=== PATIENT | male | born 1965 | race Caucasian/White ===

== ENCOUNTER 2017-12-19 19:43 | Emergency (ER) | payer BC, OTHER ==
[~2017-12-19] VITALS: Ht 177.8 cm; Wt 100.0 kg
[~2017-12-19 19:43] MED LIST: NO HOME MEDS
[2017-12-19 20:05] VITALS: BP 121/89
[2017-12-19] MEDS ORDERED: normal saline 1000ML IV soln IVB ONE (20:20)
[2017-12-19] MEDS ORDERED: ondansetron/PF 4mg/2ml inj IV ONE (20:20)
[2017-12-19] MEDS ORDERED: magnesium oxide 400mg tablet PO ONE (20:20)
[2017-12-19] MEDS ORDERED: thiamine 100mg tablet PO ONE (20:20)
== END 2017-12-19 21:15 | disposition left against medical advice (07) ==
LOC: ER 19:44
DX: F10.129 Alcohol abuse with intoxication, unspecified (principal); Y90.9 Presence of alcohol in blood, level not specified
CPT/HCPCS: 80053; 80320; 83735; 93005; 99284

== ENCOUNTER 2019-08-29 12:24 | Inpatient (IN) | payer BC, MEDICAID ==
[~2019-08-29] VITALS: Ht 180.3 cm; Wt 73.0 kg
[2019-08-29 13:17] LABS: BASOPHILS % (AUTO) 0.4 % (0-1); EOSINOPHILS % (AUTO) 0.1 % (0-6); HEMATOCRIT 56.1 % (42.0-52.0); LYMPHOCYTES # (AUTO) 2.1 X10'3 (1.1-4.8); LYMPHOCYTES % (AUTO) 43.1 % (21-51); MEAN CORPUSCULAR HEMOGLOBIN 31.6 PG (27.0-31.0); MEAN CORPUSCULAR HGB CONC 33.2 g/dL (33.0-36.5); MEAN CORPUSCULAR VOLUME 95.1 FL (78-98); MEAN PLATELET VOLUME 8.8 FL (7.4-10.4); MONOCYTES # (AUTO) 0.4 X10'3 (0-0.9); MONOCYTES % (AUTO) 8.9 % (2-12); NEUTROPHILS # (AUTO) 2.4 X10'3 (1.8-7.7); NEUTROPHILS % (AUTO) 47.5 % (42-75); PLATELET COUNT 275 X10'3 (140-440); RED CELL DISTRIBUTION WIDTH 13.9 % (11.5-14.5); WHITE BLOOD COUNT 4.9 X10'3 (4.5-11.0)
[2019-08-29 13:21] LABS: HEMOGLOBIN 18.6 g/dl (14.0-17.9)
[2019-08-29] MEDS ORDERED: normal saline 1000ML IV soln IV ONE (13:30)
[2019-08-29] MEDS ORDERED: thiamine 100mg/ml 2ml inj. IV ONE (13:30)
[2019-08-29] MEDS ORDERED: folic acid 1mg/0.2ml inj IV ONE (13:30)
[2019-08-29 13:31] LABS: ALANINE AMINOTRANSFERASE 57 U/L (12-78); ALBUMIN 4.2 G/DL (3.4-5.0); ALBUMIN/GLOBULIN RATIO 0.9 (1.1-1.5); ALKALINE PHOSPHATASE 118 IU/L (46-116); ANION GAP 16 (8-16); ASPARTATE AMINO TRANSFERASE 54 U/L (10-37); BILIRUBIN,TOTAL 0.5 MG/DL (0.1-1.0); BLOOD UREA NITROGEN 2 MG/DL (7-18); BUN/CREATININE RATIO 1.7 (5.4-32.0); CALCIUM 9.2 MG/DL (8.5-10.1); CHLORIDE 102 MMOL/L (99-107); CREATININE 1.16 MG/DL (0.60-1.10); GLUCOSE 157 MG/DL (70-104); POTASSIUM 3.4 MMOL/L (3.5-5.1); SODIUM 140 MMOL/L (135-145); TOTAL PROTEIN 8.8 G/DL (6.4-8.2); eGFR 66 ML/MIN
[2019-08-29] MEDS ORDERED: LORazepam 2 mg/ml vial IV ONE (14:00)
[2019-08-29 14:15] LABS: ETHANOL 0.295 GM/DL (0.0-0.010)
--- NOTE | 2019-08-29 14:41 | NUR ---
UA sent to lab. Pt appears less anxious. Resting on gurney. No distress.
[2019-08-29 14:51] LABS: LIPASE 243 U/L (73-393)
[2019-08-29 15:10] LABS: CLARITY,URINE CLEAR (Clear); COLOR,URINE YELLOW (Yellow); GLUCOSE, URINE NEGATIVE (Neg); KETONES,URINE NEGATIVE (Neg); LEUKOCYTE ESTERASE ,URINE NEGATIVE (Neg); NITRITES, URINE NEGATIVE (Neg); OCCULT BLOOD,URINE TRACE-INTACT (Neg); PROTEIN,URINE 100 mg/dl (Neg); UROBILINOGEN,URINE 0.2 E.U/dL (0.2-1.0)
[2019-08-29 15:13] LABS: URINE AMPHETAMINE SCREEN NEGATIVE (Neg); URINE BARBITUATE SCREEN NEGATIVE (Neg); URINE BENZODIAZEPINES SCREEN NEGATIVE (Neg); URINE CANNABINOID SCREEN POSITIVE (Neg); URINE COCAINE SCREEN NEGATIVE (Neg); URINE METHADONE SCREEN NEGATIVE (Neg); URINE OPIATE SCREEN NEGATIVE (Neg); URINE PHENCYCLIDINE SCREEN NEGATIVE (Neg)
[2019-08-29 15:28] LABS: BACTERIA,URINE NONE SEEN /HPF (Neg); MUCUS STRANDS FEW /LPF (Neg); RBC,URINE 0-2 /HPF (0-2); SQUAMOUS EPITHELIAL CELL,UR NONE SEEN /LPF (FEW); UA COLLECTION TYPE VOIDED; WBC,URINE NONE SEEN /HPF (0-4)
[2019-08-29 15:29] LABS: HYALINE CASTS 0-3 /LPF (NEGATIVE)
[2019-08-29] MEDS ORDERED: normal saline 1000ML IV soln IVB ONE (16:20)
--- NOTE | 2019-08-29 16:20 | NUR ---
Pt up and ambulatory to restroom without assistance.
--- NOTE | 2019-08-29 17:43 | NUR ---
Fluid bolus complete. Lab notified for redraw of LA.
--- NOTE | 2019-08-29 17:54 | NUR ---
Attempted to give PO fluids, pt sitting upright vomiting. Yoshi notified.
[2019-08-29] MEDS ORDERED: proCHLORperazine 10 MG/2 ml inj IV ONE (17:55)
[2019-08-29] MEDS ORDERED: normal saline 1000ml 1,000 ML IV SCH (19:34)
[2019-08-29] MEDS ORDERED: magnesium 2GM in 50ml NS 50 ML IV PRN (19:35)
[2019-08-29] MEDS ORDERED: mag hydrox/Alum hydrox/simeth 30ml oral suspension PO PRN (19:35)
[2019-08-29] MEDS ORDERED: acetaminophen 325mg tablet PO PRN (19:35)
[2019-08-29] MEDS ORDERED: magnesium 4gm in 100ml NS 100 ML IV PRN (19:35)
[2019-08-29] MEDS ORDERED: metoclopramide 5 mg/ml inj IV PRN (19:35)
[2019-08-29] MEDS ORDERED: potassium Cl 20 mEq SR tablet PO PRN ×2 (19:35)
[2019-08-29] MEDS ORDERED: magnesium Cl slow-release 64mg tablet PO PRN (19:35)
[2019-08-29] MEDS ORDERED: potassium CL 10mEq/100ml bag 100 ML IV PRN ×2 (19:35)
[2019-08-29] MEDS: K and/or MAG REPLACEMENT MC SCH (20:00)
[2019-08-29 20:30] VITALS: BP 153/101
--- NOTE | 2019-08-29 20:33 | NUR ---
PAGER ID: [phone] MESSAGE: Kian Figueroa [id number]: Patient is requesting something for sleep. Also, would you like to DC NS? its only running at 20 and he already got 5 liters in the ER. -Kizzy RIVERA [phone]
--- NOTE | 2019-08-29 21:05 | NUR ---
Patient in room PCU 3028. I have received report from Tony RIVERA and had the opportunity to ask questions and assume patient care.
[2019-08-29 22:00] VITALS: BP 144/88
[2019-08-30] VITALS (7 sets, daily range): BP systolic 89–159; BP diastolic 54–112
[2019-08-30 01:36] LABS: BASOPHILS # (AUTO) 0.1 X10'3 (0-0.2); BASOPHILS % (AUTO) 0.8 % (0-1); EOSINOPHILS % (AUTO) 0.1 % (0-6); HEMATOCRIT 45.1 % (42.0-52.0); LYMPHOCYTES # (AUTO) 1.6 X10'3 (1.1-4.8); LYMPHOCYTES % (AUTO) 23.5 % (21-51); MEAN CORPUSCULAR HEMOGLOBIN 31.9 PG (27.0-31.0); MEAN CORPUSCULAR HGB CONC 33.3 g/dL (33.0-36.5); MEAN CORPUSCULAR VOLUME 95.7 FL (78-98); MEAN PLATELET VOLUME 9.2 FL (7.4-10.4); MONOCYTES # (AUTO) 0.4 X10'3 (0-0.9); MONOCYTES % (AUTO) 5.4 % (2-12); NEUTROPHILS # (AUTO) 4.7 X10'3 (1.8-7.7); NEUTROPHILS % (AUTO) 70.2 % (42-75); PLATELET COUNT 184 X10'3 (140-440); RED BLOOD COUNT 4.71 X10'6 (4.70-6.10); RED CELL DISTRIBUTION WIDTH 14.1 % (11.5-14.5); WHITE BLOOD COUNT 6.7 X10'3 (4.5-11.0)
[2019-08-30 01:38] LABS: ALBUMIN 3.3 G/DL (3.4-5.0); ANION GAP 14 (8-16); BLOOD UREA NITROGEN 2 MG/DL (7-18); BUN/CREATININE RATIO 1.8 (5.4-32.0); CALCIUM 7.7 MG/DL (8.5-10.1); CHLORIDE 105 MMOL/L (99-107); GLUCOSE 101 MG/DL (70-104); MAGNESIUM 1.2 MG/DL (1.5-2.4); POTASSIUM 3.5 MMOL/L (3.5-5.1); SODIUM 142 MMOL/L (135-145); TOTAL CARBON DIOXIDE 23.5 MMOL/L (24-32); eGFR 71 ML/MIN
--- NOTE | 2019-08-30 06:28 | NUR ---
Problems reprioritized. Patient report given, questions answered & plan of care reviewed with BRIANA RIVERA.
--- NOTE | 2019-08-30 06:28 | NUR ---
Patient in room PCU 3028. I have received report from Roscoe RIVERA and had the opportunity to ask questions and assume patient care.
[2019-08-30] MEDS: K and/or MAG REPLACEMENT MC SCH ×2 (07:40→20:00)
--- NOTE | 2019-08-30 10:29 | NUR ---
Spoke to Dr Huerta regarding this patients plan of care. Relayed that patient is c/o pain/jittery/anxiety. Received verbal orders to start the patient on mild alcohol withdrawal protocol. will continue to monitor the patient closely and intervene as needed.
[2019-08-30] MEDS ORDERED: LORazepam 2 mg/ml vial IV PRN (10:35)
[2019-08-30] MEDS ORDERED: haloperidol 5mg tablet PO PRN (10:35)
[2019-08-30] MEDS ORDERED: haloperidol lactate 5mg/ml inj IM PRN (10:35)
[2019-08-30] MEDS ORDERED: dextrose 50%-water 50ml dispensing syringe IV PRN (10:35)
[2019-08-30] MEDS: LORazepam 1 MG tablet PO PRN ×3 (11:36→23:24)
[2019-08-30] MEDS: pantoprazole 40mg Tablet.DR PO SCH (11:36)
[2019-08-30] MEDS: thiamine 100mg tablet PO SCH (11:36)
[2019-08-30] MEDS: folic acid 1mg tablet PO SCH (11:36)
--- NOTE | 2019-08-30 18:13 | NUR ---
Sent a page to Dr Huerta re this patients BP PAGER ID: [phone] MESSAGE: Rafia RIVERA [phone] [id number] [address], patients BP 159/112, no prn BP meds, can I have an order for prn hydralazine? thanks!
--- NOTE | 2019-08-30 18:14 | NUR ---
Patient in room PCU 3028. I have received report from MIGUEL Morataya and had the opportunity to ask questions and assume patient care.
--- NOTE | 2019-08-30 18:14 | NUR ---
Problems reprioritized. Patient report given, questions answered & plan of care reviewed with Angie RIVERA.
[2019-08-30] MEDS ORDERED: hydrALAZINE 20mg/ml inj. IV PRN (22:05)
[2019-08-31 03:00] VITALS: BP 150/100
[2019-08-31 05:14] LABS: BASOPHILS % (AUTO) 0.7 % (0-1); EOSINOPHILS % (AUTO) 0.7 % (0-6); HEMATOCRIT 48.7 % (42.0-52.0); HEMOGLOBIN 16.3 g/dl (14.0-17.9); LYMPHOCYTES # (AUTO) 2.4 X10'3 (1.1-4.8); LYMPHOCYTES % (AUTO) 36.1 % (21-51); MEAN CORPUSCULAR HEMOGLOBIN 31.9 PG (27.0-31.0); MEAN CORPUSCULAR HGB CONC 33.4 g/dL (33.0-36.5); MEAN CORPUSCULAR VOLUME 95.6 FL (78-98); MEAN PLATELET VOLUME 9.5 FL (7.4-10.4); MONOCYTES # (AUTO) 0.4 X10'3 (0-0.9); MONOCYTES % (AUTO) 5.5 % (2-12); NEUTROPHILS # (AUTO) 3.8 X10'3 (1.8-7.7); PLATELET COUNT 163 X10'3 (140-440); RED CELL DISTRIBUTION WIDTH 13.7 % (11.5-14.5); WHITE BLOOD COUNT 6.7 X10'3 (4.5-11.0)
[2019-08-31 05:24] LABS: ALBUMIN 3.5 G/DL (3.4-5.0); ANION GAP 6 (8-16); BLOOD UREA NITROGEN 8 MG/DL (7-18); BUN/CREATININE RATIO 6.8 (5.4-32.0); CALCIUM 9.1 MG/DL (8.5-10.1); CHLORIDE 105 MMOL/L (99-107); CREATININE 1.18 MG/DL (0.60-1.10); GLUCOSE 88 MG/DL (70-104); MAGNESIUM 2.5 MG/DL (1.5-2.4); POTASSIUM 3.9 MMOL/L (3.5-5.1); SODIUM 141 MMOL/L (135-145); TOTAL CARBON DIOXIDE 29.9 MMOL/L (24-32); eGFR 65 ML/MIN
[2019-08-31 06:00] VITALS: BP 128/95
--- NOTE | 2019-08-31 06:14 | NUR ---
Problems reprioritized. Patient report given, questions answered & plan of care reviewed with MIGUEL Morataya.
--- NOTE | 2019-08-31 06:18 | NUR ---
Patient in room PCU 3028. I have received report from Angie RIVERA and had the opportunity to ask questions and assume patient care.
[2019-08-31] MEDS: pantoprazole 40mg Tablet.DR PO SCH (07:34)
[2019-08-31] MEDS: thiamine 100mg tablet PO SCH (07:34)
[2019-08-31] MEDS: folic acid 1mg tablet PO SCH (07:38)
[2019-08-31] MEDS: K and/or MAG REPLACEMENT MC SCH (08:00)
[2019-08-31] MEDS ORDERED: multivitamins, therapeutics tablet PO SCH (08:00)
--- NOTE | 2019-08-31 11:01 | NUR ---
Spoke with Dr Huerta who plans on discharging this patient, wants to patient to receive information from social work lecturer prior to discharge, will continue to monitor closely.
[2019-08-31] MEDS ORDERED: thiamine tablet PO (11:04)
[2019-08-31] MEDS ORDERED: LORA-268 PO (11:04)
[2019-08-31] MEDS ORDERED: MULT-1179 PO (11:04)
[2019-08-31] MEDS ORDERED: folic acid tablet PO (11:04)
--- NOTE | 2019-08-31 12:45 | NUR ---
Stable for discharge per MD order, all discharge instructions reviewed with the patient and all questions answered, [facility], SS saw this patient before discharge and provided materials on resources on alcohol abuse and how to stop using alcohol, all belongings collected and sent with the patient, PIV and tele monitor discontinued, left the unit at 1245 in wheelchair to private vehicle.
== END 2019-08-31 12:45 | disposition home or self-care (01) | DRG 425 ==
LOC: ER 12:25 → ED HOLD 19:34 → PCU 3S 20:25
PROVIDERS: ADMIT Internal Medicine; ATTEND Family Medicine
DX: E87.2 Acidosis (principal); F10.229 Alcohol dependence with intoxication, unspecified; F10.239 Alcohol dependence with withdrawal, unspecified
CPT/HCPCS: 36415; 71045; 80048; 80053; 80305; 80320; 81001; 82948; 83605; 83690; 83735; 83880; 84145; 84484; 85025; 87040; 87081; 93005; 93306; 96365; 99285; G0378; J0780; J2060; J3411; J3475; J3490; J7030

== ENCOUNTER 2020-02-02 18:44 | Emergency (ER) | payer MEDICAID ==
[~2020-02-02] VITALS: Ht 180.3 cm; Wt 75.3 kg
[~2020-02-02 18:44] MED LIST changes: +LORA-268 PO; +MULT-25 PO; -NO HOME MEDS; +folic acid tablet PO; +thiamine tablet PO
[2020-02-02 19:19] VITALS: BP 163/117
--- NOTE | 2020-02-02 22:17 | NUR ---
Pt has not been seen in his room for about 30 minutes. MIGUEL Oneal last saw him and he had just returned from the bathroom, was sitting on his gurney, and reported he was hungry. Aprox 10 min later I brought food to the room and Pt was not there. No techs or Registration Staff had seen Pt leave the department. Dr. Phillips and viscose cellar charge hand Kiera updated. reports he was going to be discharging the Pt soon. Pt listed as Eloped.
== END 2020-02-02 22:54 | disposition left against medical advice (07) ==
LOC: ER 18:45
DX: F10.129 Alcohol abuse with intoxication, unspecified (principal); Z98.890 Other specified postprocedural states; Z72.89 Other problems related to lifestyle; Y90.9 Presence of alcohol in blood, level not specified
CPT/HCPCS: 99281

== ENCOUNTER 2020-06-25 16:30 | Emergency (ER) | payer MEDICAID ==
[~2020-06-25] VITALS: Ht 177.8 cm; Wt 90.0 kg
[2020-06-25 16:40] VITALS: BP 140/100
[2020-06-25] MEDS ORDERED: GABA-530 PO (18:36)
[2020-06-25] MEDS ORDERED: oxyCODONE/APAP 10/325mg tablet PO ONE (18:40)
== END 2020-06-25 18:47 | disposition home or self-care (01) ==
LOC: ER 16:30
DX: M25.572 Pain in left ankle and joints of left foot (principal); G89.29 Other chronic pain; Z98.890 Other specified postprocedural states
CPT/HCPCS: 99283

== ENCOUNTER 2021-12-06 20:07 | Emergency (ER) | payer MEDICAID ==
[~2021-12-06] VITALS: Ht 180.3 cm; Wt 81.8 kg
[~2021-12-06 20:07] MED LIST changes: +GABA-530 PO; -LORA-268 PO; -MULT-25 PO; -folic acid tablet PO; -thiamine tablet PO
[2021-12-06 20:14] VITALS: BP 144/105
[2021-12-07] MEDS ORDERED: AMOX-580 PO (16:13)
[2021-12-07] MEDS ORDERED: HYDR-3965 PO (16:27)
== END 2021-12-06 23:03 | disposition left against medical advice (07) ==
LOC: ER 20:08
DX: R07.89 Other chest pain (principal); Z53.21 Procedure and treatment not carried out due to patient leaving prior to being seen by health care provider

== ENCOUNTER 2021-12-07 11:04 | Emergency (ER) | payer MEDICAID ==
[~2021-12-07] VITALS: Ht 180.3 cm; Wt 81.8 kg
[2021-12-07 11:37] VITALS: BP 151/118
[2021-12-07] MEDS ORDERED: rabies vaccine (PCEC)/PF 2.5 unit kit IMVAC ONE (15:50)
[2021-12-07] MEDS ORDERED: amox tr/potassium clavulanate 875/125mg TAB PO ONE (15:50)
[2021-12-07] MEDS ORDERED: rabies immune globulin/PF 150 unit/ml inj IMVAC STA ×2 (15:50→16:14)
[2021-12-07] MEDS ORDERED: AMOX-580 PO ×2 (16:13)
[2021-12-07] MEDS ORDERED: HYDR-3965 PO (16:27)
[2021-12-13] MEDS ORDERED: NO HOME MEDS (15:11)
== END 2021-12-07 17:24 | disposition home or self-care (01) ==
LOC: ER 11:05
DX: L53.8 Other specified erythematous conditions (principal); Z20.3 Contact with and (suspected) exposure to rabies; Z87.81 Personal history of (healed) traumatic fracture; Z79.899 Other long term (current) drug therapy; Y93.89 Activity, other specified; W54.0XXA Bitten by dog, initial encounter; Y92.89 Other specified places as the place of occurrence of the external cause; Y99.8 Other external cause status
CPT/HCPCS: 73610; 90376; 90471; 90472; 90675; 99284

== ENCOUNTER 2021-12-09 10:27 | Emergency (ER) | payer MEDICAID ==
[~2021-12-09] VITALS: Ht 180.3 cm; Wt 77.2 kg
[~2021-12-09 10:27] MED LIST changes: +AMOX-580 PO; +HYDR-3965 PO
[2021-12-09 10:43] VITALS: BP 134/92
[2021-12-10] MEDS ORDERED: HYDR-3965 PO (10:48)
== END 2021-12-09 12:22 | disposition home or self-care (01) ==
LOC: ER 10:27
DX: Z28.89 Immunization not carried out for other reason (principal); G89.29 Other chronic pain
CPT/HCPCS: 99281

== ENCOUNTER 2021-12-10 10:09 | Emergency (ER) | payer MEDICAID ==
[~2021-12-10] VITALS: Ht 180.3 cm; Wt 79.5 kg
[2021-12-10 10:14] VITALS: BP 146/101
[2021-12-10] MEDS ORDERED: rabies vaccine (PCEC)/PF 2.5 unit kit IMVAC ONE (10:40)
[2021-12-10] MEDS ORDERED: HYDR-3965 PO (10:48)
[2021-12-13] MEDS ORDERED: NO HOME MEDS (15:11)
== END 2021-12-10 11:07 | disposition home or self-care (01) ==
LOC: ER 10:10
DX: S40.2 Other superficial injuries of shoulder (principal); Z20.3 Contact with and (suspected) exposure to rabies; W54.0XXD Bitten by dog, subsequent encounter; G89.29 Other chronic pain; Z87.81 Personal history of (healed) traumatic fracture; Z79.899 Other long term (current) drug therapy
CPT/HCPCS: 90471; 90675; 99281

== ENCOUNTER 2021-12-19 09:44 | Emergency (ER) | payer MEDICAID ==
[~2021-12-19] VITALS: Ht 177.8 cm; Wt 72.7 kg
[~2021-12-19 09:44] MED LIST changes: -AMOX-580 PO; -GABA-530 PO; -HYDR-3965 PO; +NO HOME MEDS
[2021-12-19 09:56] VITALS: BP 150/106
[2021-12-19] MEDS ORDERED: rabies vaccine (PCEC)/PF 2.5 unit kit IMVAC ONE (10:05)
== END 2021-12-19 10:34 | disposition home or self-care (01) ==
LOC: ER 09:45
DX: S20.211D Contusion of right front wall of thorax, subsequent encounter (principal); G89.29 Other chronic pain; Z98.890 Other specified postprocedural states; Z72.89 Other problems related to lifestyle; W54.0XXD Bitten by dog, subsequent encounter
CPT/HCPCS: 90471; 90675; 99281

== ENCOUNTER 2021-12-23 10:21 | Emergency (ER) | payer MEDICAID | END 2021-12-23 11:53 | disposition left against medical advice (07) | LOC: ER 10:21 | DX: Z00.8 Encounter for other general examination (principal); Z53.21 Procedure and treatment not carried out due to patient leaving prior to being seen by health care provider ==